=== PATIENT | male | born 1985 ===

== ENCOUNTER 2021-12-16 10:16 | Emergency (ER) | payer OTHER ==
[~2021-12-16] VITALS: Ht 172.7 cm; Wt 124.7 kg
[2021-12-16] MEDS ORDERED: METRONIDAZOLE500 MG PO (11:15)
[2021-12-16] MEDS ORDERED: CIPRO500 MG PO (11:15)
== END 2021-12-16 12:32 | disposition home or self-care (01) ==
LOC: ER 10:16
DX: K61.0 Anal abscess (principal); B96.1 Klebsiella pneumoniae [K. pneumoniae] as the cause of diseases classified elsewhere; B96.89 Other specified bacterial agents as the cause of diseases classified elsewhere; Z91.013 Allergy to seafood

== ENCOUNTER 2022-01-29 19:09 | Emergency (ER) | payer OTHER ==
[~2022-01-29] VITALS: Ht 175.3 cm; Wt 127.0 kg
[~2022-01-29 19:09] MED LIST: CIPRO500 MG PO; METRONIDAZOLE500 MG PO
[2022-01-30] MEDS ORDERED: PEPCID40 MG PO (03:05)
[2022-01-30] MEDS ORDERED: LEVSIN/SL0.125 MG SL (03:05)
== END 2022-01-30 03:13 ==
LOC: ER 19:09
DX: K52.9 Noninfective gastroenteritis and colitis, unspecified (principal); R10.84 Generalized abdominal pain; Z91.013 Allergy to seafood

== ENCOUNTER 2022-02-13 06:50 | Day surgery (SDC) | payer OTHER ==
[~2022-02-13] VITALS: Ht 175.3 cm; Wt 127.0 kg
[~2022-02-13 06:50] MED LIST changes: +LEVSIN/SL0.125 MG SL; +PEPCID40 MG PO
[2022-02-13] MEDS ORDERED: PERCOCET 5-3251 EACH PO (17:47)
== END 2022-02-14 00:50 | disposition home or self-care (01) ==
LOC: CIR.AMB 06:50
PROVIDERS: ATTEND Surgery
DX: K60.3 Anal fistula (principal); K62.89 Other specified diseases of anus and rectum; Z20.822 Contact with and (suspected) exposure to COVID-19; Z91.013 Allergy to seafood; E66.9 Obesity, unspecified

== ENCOUNTER 2022-06-19 05:30 | Day surgery (SDC) | payer OTHER ==
[~2022-06-19] VITALS: Ht 172.7 cm; Wt 125.6 kg
[~2022-06-19 05:30] MED LIST changes: +PERCOCET 5-3251 EACH PO
[2022-06-19] MEDS ORDERED: PERCOCET 5-3251 EACH PO (08:10)
== END 2022-06-19 13:50 | disposition home or self-care (01) ==
LOC: CIR.AMB 05:30
PROVIDERS: ATTEND Surgery
DX: K60.3 Anal fistula (principal); K62.89 Other specified diseases of anus and rectum; Z91.013 Allergy to seafood; Z20.822 Contact with and (suspected) exposure to COVID-19